=== PATIENT | female | born 1965 | race Caucasian/White ===

== ENCOUNTER 2016-08-23 09:21 | Emergency (ER) | payer MEDICARE, MEDICAID ==
[2016-08-23 09:44] VITALS: BP 111/68
--- NOTE | 2016-08-23 10:07 | UC ---
Lower Extremity/Ankle HPI - HPI Summary HPI Summary: right great toe pain after gently kicking a bowling ball. - History of Current Complaint Chief Complaint: UCLowerExtremity Stated Complaint: RIGHT FOOT BIG TOE INJURY Time Seen by Provider: 08/23/16 10:00 Hx Obtained From: Patient Hx Last Menstrual Period: n/a ?: No Onset/Duration: Sudden Onset Severity Initially: Mild Severity Currently: Moderate Aggravating Factor(s): Standing, Ambulation Alleviating Factor(s): Rest, Elevation Able to Bear Weight: Yes - Allergies/Home Medications Allergies/Adverse Reactions: Allergies Allergy/AdvReac Type Severity Reaction Status Date / Time Aspirin Allergy Vomiting Verified 08/23/16 09:38 Home Medications: Home Medications Levothyroxine TAB* [Synthroid TAB*] 100 mcg PO DAILY 08/23/16 [History Confirmed 08/23/16] PMH/Surg Hx/FS Hx/Imm Hx Previously Healthy: Yes - no hx of gout. - Surgical History Surgical History: Yes Surgery Procedure, Year, and Place: Low back surgery 01/19/2010; cholecystectomy 01/2013 - Family History Known Family History: Positive: Unknown - Social History Alcohol Use: None Substance Use Type: None Smoking Status (MU): Former Smoker Have You Smoked in the Last Year: Yes When Did the Patient Quit Smoking/Using Tobacco: 1 month ago Review of Systems All Other Systems Reviewed And Are Negative: Yes Physical Exam Triage Information Reviewed: Yes Appearance: Well-Appearing, No Pain Distress, Well-Nourished Vital Signs: Initial Vital Signs Temp 98.3 F 08/23/16 09:39 Pulse 64 08/23/16 09:39 Resp 14 08/23/16 09:39 BP 111/68 08/23/16 09:39 Pulse Ox 100 08/23/16 09:39 Vital Signs Reviewed: Yes Eye Exam: Normal ENT Exam: Normal Neck exam: Normal Respiratory Exam: Normal Cardiovascular Exam: Normal Abdominal Exam: Normal Musculoskeletal Exam: Other - right great toe and 1st mtp joint tenderness and mild swelling. There is no streaking. no deformity. Neurological Exam: Normal Psychological Exam: Normal Skin Exam: Normal Procedures - Splinting Pre-Made Type: post ankle and foot. Hand-Made Type: orthoglass Splint: posterior walking Pre-Proc Neuro Vasc Exam: normal Post-Proc Neuro Vasc Exam: normal Lower Extremity Course/Dx - Course Course Of Treatment: possible fracture versus gout. she denies significiant alcohol use. no prior gout. - Differential Dx/Diagnosis Provider Diagnoses: right great toe and foot pain. Discharge - Discharge Plan Condition: Good Disposition: HOME Patient Education Materials: Foot Fracture in Adults (ED) Referrals: Philippe Nuñez MD [Medical Doctor] - 1 Day Vanna Zamora MD [Primary Care Provider] -
--- NOTE | 2016-08-23 10:35 | RAD ---
INDICATION: Right great toe pain 6 days after kicking a ball involved COMPARISON: None. TECHNIQUE: 3 views of the right foot were obtained. FINDINGS: Overlying the distal pole of the right great toe proximal phalanx is a faint lucent medullary line that extends from the distal articulating surface of the bone somewhat obliquely to the lateral aspect of the proximal metaphysis. The remaining visualized bones are well-corticated and properly aligned. Joint spaces appear maintained. IMPRESSION: NONDISPLACED FRACTURE INVOLVING THE RIGHT GREAT TOE PROXIMAL PHALANX DESCRIBED ABOVE.
== END 2016-08-23 10:45 | disposition home or self-care (01) ==
LOC: UCCORT 09:21
DX: M79.671 Pain in right foot (principal); M79.674 Pain in right toe(s); Z88.6 Allergy status to analgesic agent; Z87.891 Personal history of nicotine dependence
CPT/HCPCS: 99211; G0463

== ENCOUNTER 2017-06-28 10:07 | Emergency (ER) | payer MEDICARE, MEDICAID ==
[2017-06-28 11:30] VITALS: BP 105/72
--- NOTE | 2017-06-28 12:01 | RAD ---
HISTORY: Right first toe trauma COMPARISONS: September 25, 2016 VIEWS: 3, Frontal, lateral, and oblique views of the first digit of the right foot FINDINGS: BONE DENSITY: Normal. BONES: There is no displaced fracture. JOINTS: There is no arthropathy. ALIGNMENT: There is no dislocation. SOFT TISSUES: Unremarkable. OTHER FINDINGS: None. IMPRESSION: NO ACUTE OSSEOUS INJURY. IF SYMPTOMS PERSIST, RECOMMEND REPEAT IMAGING.
--- NOTE | 2017-06-28 12:13 | UC ---
Lower Extremity/Ankle HPI - HPI Summary HPI Summary: right great toe pain x 2 weeks stubbed her right big to 2 weeks ago still having pain had bruising and swelling that went away - History of Current Complaint Chief Complaint: UCLowerExtremity Stated Complaint: RIGHT FOOT BIG TOE INJ Hx Obtained From: Patient Hx Last Menstrual Period: n/a Onset/Duration: Sudden Onset, Lasting Weeks - 2, Still Present Severity Initially: Moderate Severity Currently: Moderate Pain Intensity: 5 Aggravating Factor(s): Standing, Ambulation Alleviating Factor(s): Rest, Elevation Able to Bear Weight: Yes - Allergies/Home Medications Allergies/Adverse Reactions: Allergies Allergy/AdvReac Type Severity Reaction Status Date / Time aspirin Allergy GI Upset Verified 06/28/17 11:32 NSAIDS (Non-Steroidal Allergy GI Upset Verified 06/28/17 11:32 Anti-Inflamma Home Medications: Home Medications Migraine Med 1 dose PO ONCE PRN 06/28/17 [History Confirmed 06/28/17] PMH/Surg Hx/FS Hx/Imm Hx Endocrine History: Hypothyroidism GI/ History: Ulcer - Surgical History Surgical History: Yes Surgery Procedure, Year, and Place: Low back surgery 01/19/2010; cholecystectomy 01/2013 - Family History Known Family History: Positive: Unknown Negative: Diabetes - Social History Alcohol Use: Occasionally Substance Use Type: None Smoking Status (MU): Former Smoker Have You Smoked in the Last Year: Yes When Did the Patient Quit Smoking/Using Tobacco: 1 month ago Review of Systems Constitutional: Negative Skin: Negative Eyes: Negative ENT: Negative Respiratory: Negative Cardiovascular: Negative Is Patient Immunocompromised?: No All Other Systems Reviewed And Are Negative: Yes Physical Exam Triage Information Reviewed: Yes Appearance: Well-Appearing, No Pain Distress, Well-Nourished Vital Signs: Initial Vital Signs Temp 98.0 F 06/28/17 11:27 Pulse 68 06/28/17 11:27 Resp 14 06/28/17 11:27 BP 105/72 06/28/17 11:27 Pulse Ox 97 06/28/17 11:27 Vital Signs Reviewed: Yes Eyes: Positive: Conjunctiva Clear ENT Exam: Normal ENT: Positive: Normal ENT inspection, Hearing grossly normal Neck exam: Normal Neck: Positive: Supple Respiratory: Positive: Chest non-tender, Lungs clear, Normal breath sounds Cardiovascular: Positive: RRR, No Murmur, Pulses Normal Musculoskeletal: Positive: Other: - right great toe : no swelling, no erythema , no ecchymosis, + diffuse tenderness, limited ROM on flexion Lower Extremity Course/Dx - Differential Dx/Diagnosis Provider Diagnoses: contusiong righ great toe Discharge - Sign-Out/Discharge Documenting (check all that apply): Discharge - Discharge Plan Condition: Stable Disposition: HOME Patient Education Materials: Metatarsalgia (DC) Referrals: Vanna Zamora MD [Medical Doctor] - 7 Days Additional Instructions: negative xray for fracture cont. with rest, ice, take ibuprofen as needed for pain - Billing Disposition and Condition Condition: STABLE Disposition: HOME
== END 2017-06-28 12:18 | disposition home or self-care (01) ==
LOC: UCCORT 10:07
DX: S90.111A Contusion of right great toe without damage to nail, initial encounter (principal); W22.8XXA Striking against or struck by other objects, initial encounter; Y93.9 Activity, unspecified; Y92.9 Unspecified place or not applicable; Z88.6 Allergy status to analgesic agent; Z87.891 Personal history of nicotine dependence
CPT/HCPCS: 99211; G0463

== ENCOUNTER 2018-08-20 10:05 | Emergency (ER) | payer MEDICARE, MEDICAID ==
[2018-08-20 10:32] VITALS: BP 103/73
--- NOTE | 2018-08-20 11:22 | ED ---
Lower Extremity - HPI Summary HPI Summary: 52 yr old female with the complaint of right ankle pain. She rolled her ankle on Sunday behind the house on the ground. Pain is moderate and mostly in the medial right ankle. She has minimal STS. She reports having a prior ankle sprain before in the right ankle. - History of Current Complaint Chief Complaint: UCLowerExtremity Stated Complaint: RT ANKLE INJURY Time Seen by Provider: 08/20/18 10:47 Hx Last Menstrual Period: n/a Pain Intensity: 9 - Allergies/Home Medications Allergies/Adverse Reactions: Allergies Allergy/AdvReac Type Severity Reaction Status Date / Time aspirin AdvReac GI Upset Verified 08/20/18 10:27 NSAIDS (Non-Steroidal AdvReac GI Upset Verified 08/20/18 10:27 Anti-Inflamma PMH/Surg Hx/FS Hx/Imm Hx Endocrine/Hematology History: Reports: Hx Thyroid Disease - hypo GI History: Reports: Hx Ulcer - Surgical History Surgery Procedure, Year, and Place: Low back surgery 01/19/2010; cholecystectomy 01/2013 Infectious Disease History: No Infectious Disease History: Denies: Traveled Outside the [place] in Last 30 Days - Family History Known Family History: Positive: Unknown Negative: Diabetes - Social History Occupation: Employed Full-time Alcohol Use: Occasionally Substance Use Type: Reports: None Smoking Status (MU): Former Smoker Have You Smoked in the Last Year: Yes Review of Systems Constitutional: Negative Positive: Other - ankle pain right All Other Systems Reviewed And Are Negative: Yes Physical Exam Triage Information Reviewed: Yes Vital Signs On Initial Exam: Initial Vitals Temp Pulse Resp BP Pulse Ox 98.4 F 70 16 103/73 99 08/20/18 10:27 08/20/18 10:27 08/20/18 10:27 08/20/18 10:27 08/20/18 10:27 Vital Signs Reviewed: Yes Appearance: Positive: Well-Appearing, No Pain Distress Skin: Positive: Warm, Skin Color Reflects Adequate Perfusion Head/Face: Positive: Normal Head/Face Inspection Eyes: Positive: EOMI, CESILIA ENT: Positive: Normal ENT inspection Neck: Positive: Nontender Respiratory/Lung Sounds: Positive: Clear to Auscultation, Breath Sounds Present Cardiovascular: Positive: Pulses are Symmetrical in both Upper and Lower Extremities Musculoskeletal: Positive: Strength/ROM Intact, Other - tenderness over the medial malleolus right ankle. No tenderness over base of the 5th metatarsal, no tenderness over the proximal fibula. No bruise, no redness, no effusion. Neurological: Positive: Sensory/Motor Intact, Alert, Oriented to Person Place, Time, Speech Normal Psychiatric: Positive: Normal Diagnostics - Vital Signs Vital Signs Temp Pulse Resp BP Pulse Ox 08/20/18 10:27 98.4 F 70 16 103/73 99 - Laboratory Lab Statement: Any lab studies that have been ordered have been reviewed, and results considered in the medical decision making process. - Radiology right ankle tib fib Radiology Interpretation Completed By: Radiologist - nad Lower Extremity Course/Dx - Course Course Of Treatment: 52 yr old with right ankle sprain. DC home on crutches and gel splint - Diagnoses Provider Diagnoses: Right ankle sprain Discharge - Sign-Out/Discharge Documenting (check all that apply): Patient Departure All imaging exams completed and their final reports reviewed: Yes - Discharge Plan Condition: Good Disposition: HOME Patient Education Materials: Ankle Sprain (ED) Referrals: Angelia Lucas NP [Primary Care Provider] - Philippe Nuñez MD [Medical Doctor] - 2 Days - Billing Disposition and Condition Condition: GOOD Disposition: Home
== END 2018-08-20 11:36 | disposition home or self-care (01) ==
LOC: UCCORT 10:05
DX: S93.401A Sprain of unspecified ligament of right ankle, initial encounter (principal); X50.0XXA Overexertion from strenuous movement or load, initial encounter; Y92.007 Garden or yard of unspecified non-institutional (private) residence as the place of occurrence of the external cause; Z87.891 Personal history of nicotine dependence
CPT/HCPCS: 99211; G0463

== ENCOUNTER 2019-07-10 15:57 | Emergency (ER) | payer MEDICARE, MEDICAID ==
[2019-07-10 16:10] VITALS: BP 122/66
[2019-07-10] MEDS ORDERED: Tetan/Diph/Pertus SYR(Tdap)* 0.5 ML SYR(BOOSTRIX) use SYR contains LATEX IM ONE (16:25)
== END 2019-07-10 16:58 | disposition home or self-care (01) ==
LOC: UCCORT 15:57